=== PATIENT | male | born 1980 | race Two or more races ===

== ENCOUNTER 2018-12-06 14:28 | Emergency (ER) | payer OTHER ==
[~2018-12-06] VITALS: Ht 167.6 cm; Wt 90.5 kg
[2018-12-06 14:55] VITALS: BP 116/70
[2018-12-06] MEDS ORDERED: HYDROcodone-ACET 10/325MG TAB PO ONE (15:45)
[2018-12-06] MEDS ORDERED: cefTRIAXone SOD 1,000 MG VL IM ONE (15:45)
[2018-12-06] MEDS ORDERED: TETANUS-DIPTH-ACEL PERTUSSIS 0.5ML SYRG IM ONE (15:45)
[2018-12-06] MEDS ORDERED: KETOROLAC TROMETH 60MG/2ML VIAL IM ONE (15:45)
== END 2018-12-06 16:37 | disposition home or self-care (01) ==
LOC: ER 14:31
DX: S92.32 Fracture of second metatarsal bone (principal); X58.XXXA Exposure to other specified factors, initial encounter; Y93.89 Activity, other specified; Y99.0 Civilian activity done for income or pay; Y92.89 Other specified places as the place of occurrence of the external cause
CPT/HCPCS: 29515; 73630; 90471; 90715; 96372; 99283; J0696; J1885